=== PATIENT | male | born 1990 | race Caucasian/White ===

== ENCOUNTER 2018-02-07 21:33 | Emergency (ER) | payer SELFPAY ==
[2018-02-07] MEDS ORDERED: IBUPROFEN 400 MG TAB ONE (21:46)
--- NOTE | 2018-02-08 00:26 | EDPHYS ---
Physician Documentation [facility] Name: Alejandro Villalobos Age: 27 yrs Sex: Male : 1990 Arrival Date: 02/07/2018 Time: 21:37 Bed 24 Private MD: ED Physician Vlad Cano HPI: 02/07 21:52 This 27 yrs old Male presents to ER via EMS with complaints of Knee Injury. ma2 21:52 The patient presents with pain, that is acute. The complaints affect the left knee. ma2 Context: The problem was sustained at work. Onset: The symptoms/episode began/occurred suddenly, 1 hour(s) ago. Modifying factors: The symptoms are alleviated by nothing. the symptoms are aggravated by movement. Associated signs and symptoms: Pertinent negatives calf tenderness, nausea, numbness, tingling, vomiting, warmth. Severity of symptoms: At their worst the symptoms were mild, in the emergency department the symptoms have improved. The patient has not experienced similar symptoms in the past. Historical: - Allergies: 21:40 No Known Allergies; aa1 - Home Meds: 21:40 None [Active]; aa1 - PMHx: 21:40 None; aa1 - PSHx: 21:40 duodenal switch; aa1 - Immunization history:: Flu vaccine is not up to date. - Social history:: Smoking status: Patient/guardian denies using tobacco, Patient/guardian denies using alcohol, street drugs, The patient lives with family. - Ebola Screening: : No symptoms or risks identified at this time. - Family history:: not pertinent. ROS: 21:52 MS/extremity: Positive for pain, Negative for acute changes, injury or acute deformity, ma2 contusion, tenderness, warmth. 21:52 All other systems are negative. Exam: 21:52 Constitutional: This is a well developed, well nourished patient who is awake, alert, ma2 and in no acute distress. Head/Face: Normocephalic, atraumatic. Cardiovascular: Regular rate and rhythm with a normal S1 and S2. No gallops, murmurs, or rubs. Normal PMI, no JVD. No pulse deficits. Respiratory: Lungs have equal breath sounds bilaterally, clear to auscultation and percussion. No rales, rhonchi or wheezes noted. No increased work of breathing, no retractions or nasal flaring. Abdomen/GI: Soft, non-tender, with normal bowel sounds. No distension or tympany. No guarding or rebound. No evidence of tenderness throughout. Skin: Warm, dry with normal turgor. Normal color with no rashes, no lesions, and no evidence of cellulitis. MS/ Extremity: Pulses equal, no cyanosis. Neurovascular intact. Full, normal range of motion. Neuro: Awake and alert, GCS 15, oriented to person, place, time, and situation. Cranial nerves II-XII grossly intact. Motor strength 5/5 in all extremities. Sensory grossly intact. Cerebellar exam normal. Normal gait. Vital Signs: 21:40 BP 153 / 100; Pulse 80; Resp 16; Temp 99.1; Pulse Ox 97% on R/A; Weight 99.79 kg; aa1 Height 5 ft. 11 in. (180.34 cm); Pain 6/10; 22:46 BP 127 / 80; Pulse 89; Resp 18; Pulse Ox 97% on R/A; mg2 02/08 00:44 BP 122 / 70; Pulse 89; Resp 18; Pulse Ox 100% on R/A; Pain 4/10; mg2 02/07 21:40 Body Mass Index 30.68 (99.79 kg, 180.34 cm) aa1 MDM: 02/07 21:37 Patient medically screened. ma2 21:52 Differential diagnosis: closed fracture, contusion, abrasion, tendonitis. mn2 02/08 00:25 Data reviewed: vital signs, nurses notes, EMS record, radiologic studies. Counseling: I ma2 had a detailed discussion with the patient and/or guardian regarding: the historical points, exam findings, and any diagnostic results supporting the discharge/admit diagnosis, the presence of at least one elevated blood pressure reading (>120/80) during this emergency department visit, the need for outpatient follow up. Response to treatment: the patient's symptoms have markedly improved after treatment. 02/07 21:38 Order name: XRAY Tib Fib LEFT ma2 02/07 23:22 Order name: Knee Left Wo Con EDMS 02/07 23:29 Order name: Knee Immobilizer; Complete Time: 00:10 ma2 02/08 00:36 Order name: Crutches; Complete Time: 00:36 mg2 Administered Medications: 02/07 21:41 Drug: Motrin 400 mg Route: PO; mg2 22:58 Follow up: Response: No adverse reaction; Marked relief of symptoms mg2 Disposition: 02/08/18 00:26 Discharged to Home. Impression: Pain in left knee. - Condition is Stable. - Discharge Instructions: Pain Without a Known Cause, Knee Pain, [id number]. - Prescriptions for Tylenol- Codeine #3 300-30 mg Oral Tablet - take 2 tablet by ORAL route every 6 hours As needed; 30 tablet. - Medication Reconciliation Form, Thank You Letter, Antibiotic Education, Prescription Opioid Use, Work release form form. - Follow up: Private Physician; When: Tomorrow; Reason: Continuance of care. - Problem is new. - Symptoms are unchanged. Signatures: Dispatcher [employer] [facility] Angela Solorio RN RN aa1 Vlad Cano MD MD ma2 Sid Sales RN RN mg2 Corrections: (The following items were deleted from the chart) 22:31 21:38 Knee Left 2 View+RAD.RAD.BRZ ordered. [facility] 02/08 00:45 00:26 02/08/2018 00:26 Discharged to Home. Impression: Pain in left knee. Condition is mg2 Stable. Forms are Medication Reconciliation Form, Thank You Letter, Antibiotic Education, Prescription Opioid Use. Follow up: Private Physician; When: Tomorrow; Reason: Continuance of care. Problem is new. Symptoms are unchanged. ma2
--- NOTE | 2018-02-08 00:26 | ER ---
Nurse's Notes [facility] Name: Alejandro Villalobos Age: 27 yrs Sex: Male : 1990 Arrival Date: 02/07/2018 Time: 21:37 Bed 24 Private MD: Diagnosis: Pain in left knee Presentation: 02/07 21:37 Presenting complaint: Patient states: he slipped in a puddle of water while at work and aa1 twisted his L knee. CMS intact. No obvious deformity noted. Reports feeling a pop when the incident occurred. Transition of care: patient was not received from another setting of care. Onset of symptoms was February 07, 2018. Risk Assessment: Do you want to hurt yourself or someone else? Patient reports no desire to harm self or others. Initial Sepsis Screen: Does the patient meet any 2 criteria? No. Patient's initial sepsis screen is negative. Does the patient have a suspected source of infection? No. Patient's initial sepsis screen is negative. Care prior to arrival: None. 21:37 Method Of Arrival: EMS: [facility] aa1 21:37 Acuity: BURAK 4 aa1 Triage Assessment: 02/08 00:44 Injury Description: no swelling, just pain on the area. mg2 Historical: - Allergies: 02/07 21:40 No Known Allergies; aa1 - Home Meds: 21:40 None [Active]; aa1 - PMHx: 21:40 None; aa1 - PSHx: 21:40 duodenal switch; aa1 - Immunization history:: Flu vaccine is not up to date. - Social history:: Smoking status: Patient/guardian denies using tobacco, Patient/guardian denies using alcohol, street drugs, The patient lives with family. - Ebola Screening: : No symptoms or risks identified at this time. - Family history:: not pertinent. Screenin:42 Abuse screen: Denies threats or abuse. Denies injuries from another. Nutritional mg2 screening: No deficits noted. Tuberculosis screening: No symptoms or risk factors identified. Fall Risk Fall in past 12 months (25 points). Gait- Weak (10 pts.). Assessment: 21:43 General: Appears in no apparent distress. comfortable, Behavior is calm, cooperative. mg2 Pain: Complains of pain in left knee Pain does not radiate. Pain currently is 4 out of 10 on a pain scale. Quality of pain is described as aching, Pain began gradually, Is intermittent. Neuro: Level of Consciousness is awake, alert, obeys commands, Oriented to person, place, time, situation. Cardiovascular: Capillary refill < 3 seconds Patient's skin is warm and dry. Respiratory: Airway is patent Respiratory effort is even, unlabored, Respiratory pattern is regular, symmetrical. GI: No signs and/or symptoms were reported involving the gastrointestinal system. : No signs and/or symptoms were reported regarding the genitourinary system. EENT: No signs and/or symptoms were reported regarding the EENT system. Derm: Skin is intact, Skin is pink, warm \T\ dry. normal. Musculoskeletal: Circulation, motion, and sensation intact. 22:47 Reassessment: Patient appears in no apparent distress at this time. Patient and/or mg2 family updated on plan of care and expected duration. Pain level reassessed. Patient is alert, oriented x 3, equal unlabored respirations, skin warm/dry/pink. 23:01 Reassessment: Patient appears in no apparent distress at this time. Patient and/or mg2 family updated on plan of care and expected duration. Pain level reassessed. Patient is alert, oriented x 3, equal unlabored respirations, skin warm/dry/pink. unable to ambulate on his own. Vital Signs: 21:40 BP 153 / 100; Pulse 80; Resp 16; Temp 99.1; Pulse Ox 97% on R/A; Weight 99.79 kg; aa1 Height 5 ft. 11 in. (180.34 cm); Pain 6/10; 22:46 BP 127 / 80; Pulse 89; Resp 18; Pulse Ox 97% on R/A; mg2 02/08 00:44 BP 122 / 70; Pulse 89; Resp 18; Pulse Ox 100% on R/A; Pain 4/10; mg2 02/07 21:40 Body Mass Index 30.68 (99.79 kg, 180.34 cm) aa1 ED Course: 02/07 21:37 Patient arrived in ED. aa1 21:37 Vlad Cano MD is Attending Physician. ma2 21:38 Sid Sales RN is Primary Nurse. mg2 21:39 Triage completed. aa1 21:40 Arm band placed on right wrist. Patient placed in an exam room, on a stretcher. aa1 22:32 XRAY Tib Fib LEFT In Process Unspecified. EDMS 23:[address] via wheelchair. kw1 23:53 Knee Left Wo Con In Process Unspecified. EDMS 23:56 CT completed. Patient tolerated procedure well. Patient moved back from CT. kw1 02/08 00:43 No provider procedures requiring assistance completed. Patient did not have IV access mg2 during this emergency room visit. 00:44 Patient has correct armband on for positive identification. mg2 Administered Medications: 02/07 21:41 Drug: Motrin 400 mg Route: PO; mg2 22:58 Follow up: Response: No adverse reaction; Marked relief of symptoms mg2 Outcome: 02/08 00:26 Discharge ordered by . ma2 00:43 Discharged to home ambulatory, with crutches. mg2 00:43 Condition: stable 00:43 Discharge instructions given to patient, family, Instructed on discharge instructions, follow up and referral plans. medication usage, crutch walking, Demonstrated understanding of instructions, follow-up care, medications, crutch walking, Prescriptions given X 1. 00:45 Patient left the ED. mg2 Signatures: Dispatcher [employer] Angela Zheng, RN RN aa1 Janelle Granados kw1 Vlad Cano MD MD ma2 Sid Sales RN RN mg2
--- NOTE | 2018-02-08 08:23 | RAD REPORT ---
EXAM DESCRIPTION: Henri Abdul Left02/07/2018 10:35 pm CLINICAL HISTORY: Left leg pain status post injury FINDINGS: No fracture is seen
--- NOTE | 2018-02-08 13:03 | RAD REPORT ---
EXAM DESCRIPTION: CT - Knee Left Wo Con - 02/08/2018 4:00 am CLINICAL HISTORY: Left knee pain status post injury COMPARISON: X-ray 02/07/2018 TECHNIQUE: Computed axial tomography of the left knee was obtained with coronal and sagittal reconst ruction. . Preliminary report was generated by virtual radiologic and reviewed prior to this dictation All CT scans are performed using dose optimization technique as appropriate and may include automated exposure control or mA/KV adjustment according to patient size. FINDINGS: No fracture or dislocation is seen. A small joint effusion is present. The muscles are normal size and density. IMPRESSION: No fracture is seen. A small joint effusion is present. If the patient continues to have symptoms to suggest an occult fracture, ligamentous or meniscal inju ry MRI would be recommended
== END 2018-02-08 00:45 | disposition home or self-care (01) ==
LOC: ER 21:33
DX: M25.562 Pain in left knee (principal)
CPT/HCPCS: 73700; 99284